=== PATIENT | female | born 1955 | race Caucasian/White ===

== ENCOUNTER → 2019-03-25 | Outpatient (CLI) | payer MEDICARE, BC ==
--- NOTE | 2019-03-25 14:00 | MM ---
Reason for exam: screening (asymptomatic). Last mammogram was performed 1 year and 9 months ago. Physical Findings: A clinical breast exam by your physician is recommended on an annual basis and results should be correlated with mammographic findings. MG 3D Screening Mammo W/Cad Bilateral CC and MLO view(s) were taken. Prior study comparison: June 14, 2017, mammogram. October 15, 2015, mammogram. There are scattered fibroglandular densities. No suspicious abnormality. No significant changes when compared with prior studies. ASSESSMENT: Negative, BI-RAD 1 RECOMMENDATION: Routine screening mammogram of both breasts in 1 year.
== END | disposition home or self-care (01) ==
LOC: RADMAMWWP 10:38
PROVIDERS: ATTEND Family Medicine
DX: Z12.31 Encounter for screening mammogram for malignant neoplasm of breast (principal)
CPT/HCPCS: 77063; 77067

== ENCOUNTER → 2020-03-11 | Outpatient (CLI) | payer MEDICARE, BC ==
--- NOTE | 2020-03-11 21:54 | MR ---
EXAMINATION TYPE: MR knee LT wo con DATE OF EXAM: 03/11/2020 COMPARISON: None. HISTORY: Left knee pain and swelling for 3 months. TECHNIQUE: Multiplanar, multisequence imaging of the left knee is performed without IV contrast. FINDINGS: MEDIAL MENISCUS: Medial extrusion of medial meniscus on coronal images. Anterior horn is intact witho ut tear. Posterior horn shows triangular shaped increased signal does not extend to articular surface LATERAL MENISCUS: Anterior and posterior horns are intact without tear. CRUCIATE LIGAMENTS: The anterior and posterior cruciate ligaments are intact and unremarkable. COLLATERAL LIGAMENTS: The medial collateral ligament and lateral collateral ligament complex are inta ct and unremarkable. EXTENSOR MECHANISM: Visualized quadriceps and patellar tendons are intact. EFFUSION: Moderate size suprapatellar joint effusion. POPLITEAL CYST: Small popliteal/bhtaia cyst. TRICOMPARTMENT SPACES: Moderate to severe joint space loss medial tibiofemoral compartment. More mild to moderate narrowing patellofemoral and lateral tibiofemoral compartments. Mild to moderate tricomp artment joint space spurring CARTILAGE: Significant cartilaginous loss medial tibiofemoral compartment. Chondromalacia patella wit h fissuring and cartilaginous loss along the superior aspect of the posterior patellar pole. BONE MARROW SIGNAL: Heterogeneous increased T2 signal throughout the distal medial femoral condyle. OTHER: No additional significant abnormality is appreciated. IMPRESSION: 1. 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 Significant abnormal bone marrow edema distal medial femoral condyle noted. 2. Intrasubstance tear posterior horn medial meniscus. 3. Moderate-sized suprapatellar joint effusion. 4. Small popliteal cyst.
== END | disposition home or self-care (01) ==
LOC: RADMRIMAIN 19:45
PROVIDERS: ATTEND Physician Assistant Medical
DX: S83.242A Other tear of medial meniscus, current injury, left knee, initial encounter (principal); M17.12 Unilateral primary osteoarthritis, left knee; M71.22 Synovial cyst of popliteal space [Baker], left knee

== ENCOUNTER → 2022-02-02 | Outpatient (CLI) | payer MEDICARE, BC ==
--- NOTE | 2022-02-03 09:01 | MM ---
Reason for Exam: Screening (asymptomatic). Last mammogram was performed 2 year(s) and 11 month(s) ago. Patient History: Menarche at age 9. First Full-Term at age 24. Postmenopausal. Risk Values: Tiffany 5 year model risk: 2.1%. NCI Lifetime model risk: 6.7%. Prior Study Comparison: 10/15/2015 Screening Mammogram, Unknown. 06/14/2017 Screening Mammogram, Unknown. 03/25/2019 Bilateral Screening Mammogram, [facility]. Tissue Density: There are scattered fibroglandular densities. Findings: Analyzed By CAD. There is no suspicious group of microcalcifications or new suspicious mass in either breast. Overall Assessment: Negative, BI-RAD 1 Management: Screening Mammogram of both breasts in 1 year. A clinical breast exam by your physician is recommended on an annual basis and results should be correlated with mammographic findings. Electronically signed and approved by: Raudel Spencer M.D. Radiologis
== END | disposition home or self-care (01) ==
LOC: RADMAMWWP 09:29
PROVIDERS: ATTEND Family Medicine
DX: Z12.31 Encounter for screening mammogram for malignant neoplasm of breast (principal); Z78.0 Asymptomatic menopausal state
CPT/HCPCS: 77063; 77067

== ENCOUNTER → 2023-09-20 | Outpatient (CLI) | payer MEDICARE, BC ==
--- NOTE | 2023-09-20 13:04 | CT ---
EXAMINATION TYPE: CT sinus wo con CT DLP: 480 mGycm, Automated exposure control for dose reduction was used. DATE OF EXAM: 09/20/2023 12:35 PM COMPARISON: . CLINICAL INDICATION:Female, 68 years old with history of J32.9 CHRONIC SINUSITIS; , TECHNIQUE: Multiple thin axial images were obtained through the paranasal sinuses without the use of IV contrast. Additional coronal and sagittal reformatted images were submitted for evaluation. Contrast used: none Oral contrast used: none FINDINGS: Frontal sinuses: Normally developed and aerated. Frontal Recess: Clear Maxillary Sinuses: Septal near the right ostiomeatal complex. Nearly occluded right ostiomeatal compl ex. Mucosal thickening throughout the right maxillary sinus. Patent left ostiomeatal complex. Left ma xillary sinus 2.4 cm retention cyst. Maxillary Infundibula([facility]): Clear, . Ethmoid sinuses: Normally developed and predominantly aerated. Sphenoid sinuses: Normally developed and aerated. Very small mucous retention cyst in the sphenoid si nus.. No dehiscence of carotid canal. No evidence of optic nerve dehiscence within the sphenoid sinu s. Sphenoethmoidal recesses: Clear. Nasal septum: Left convex deviation of the nasal septum. Nasal Turbinates: Within normal limits. Mastoid air cells & middle ears: The air cells are clear. The middle ears are grossly unremarkable. Modified Soft tissues & Brain: Partially seen without gross abnormality. Globes are intact. Other: Cribriform plate demonstrates symmetric cribriform plate. No evidence of bony dehiscence of skull ba se. Lamina papyracea is intact without evidence of remote orbital fracture or orbital prolapse into the e thmoid sinus. Pneumatization of the carmencita carlyle. IMPRESSION: 1. No significant mucosal sinus disease. 2. The ostiomeatal units, frontonasal and sphenoethmoidal recesses are clear.
--- NOTE | 2023-09-22 08:12 | MM ---
Reason for Exam: Screening (asymptomatic). Last mammogram was performed 1 year(s) and 7 month(s) ago. Patient History: Menarche at age 9. First Full-Term at age 24. Postmenopausal. Risk Values: Tiffany 5 year model risk: 2.1%. NCI Lifetime model risk: 6.1%. Prior Study Comparison: 06/14/2017 Screening Mammogram, Unknown. 03/25/2019 Bilateral Screening Mammogram, [facility]. 02/02/2022 Bilateral MG 3D screening mammo w/cad, [facility]. Tissue Density: There are scattered areas of fibroglandular density. Findings: Analyzed By CAD. Asymmetric density in the posterior central left breast. Spot compression view recommended. Stable benign-appearing calcifications. Stable asymmetric density in the outer margin left breast. Overall Assessment: Incomplete: need additional imaging evaluation, BI-RAD 0 Management: Diagnostic Mammogram of the left breast. . Patient should continue monthly self-breast exams. A clinical breast exam by your physician is recommended on an annual basis. This exam should not preclude additional follow-up of suspicious palpable abnormalities. Note on Tiffany scores and lifetime risk: 1. A Tiffany score greater than 3% is considered moderate risk. If this is the case, consider specialist referral to assess eligibility for a risk reducing agent. 2. If overall lifetime risk for the development of breast cancer is 20% or higher, the patient may qualify for future screening with alternating mammogram and breast MRI. Electronically signed and approved by: Benoit Humphries M.D. Radiologis
== END | disposition home or self-care (01) ==
LOC: RADMAMWWP 11:07
PROVIDERS: ATTEND Pediatrics
DX: Z12.31 Encounter for screening mammogram for malignant neoplasm of breast (principal); J32.9 Chronic sinusitis, unspecified; R92.322 Mammographic fibroglandular density, left breast; Z78.0 Asymptomatic menopausal state
CPT/HCPCS: 70486; 77063; 77067

== ENCOUNTER → 2023-09-27 | Outpatient (CLI) | payer MEDICARE, BC ==
--- NOTE | 2023-09-27 08:44 | MM ---
Reason for Exam: Additional evaluation requested from abnormal screening. Last screening mammogram was performed less than 1 month ago. Patient History: Menarche at age 9. First Full-Term at age 24. Postmenopausal. Patient has history of breast feeding. Risk Values: Tiffany 5 year model risk: 2.1%. NCI Lifetime model risk: 6.1%. Prior Study Comparison: 10/15/2015 Screening Mammogram, Unknown. 06/14/2017 Screening Mammogram, Unknown. 03/25/2019 Bilateral Screening Mammogram, [facility]. 02/02/2022 Bilateral MG 3D screening mammo w/cad, [facility]. 09/20/2023 Bilateral MG 3D screening mammo w/cad, [facility]. Tissue Density: Left: There are scattered areas of fibroglandular density. Findings: Analyzed By CAD. No persistent density, distortion or mass. Overall Assessment: Negative, BI-RAD 1 Management: Screening Mammogram of both breasts in 1 year. . Results were given to the patient verbally at the time of exam. Patient should continue monthly self-breast exams. A clinical breast exam by your physician is recommended on an annual basis. This exam should not preclude additional follow-up of suspicious palpable abnormalities. Note on Tiffany scores and lifetime risk: 1. A Tiffany score greater than 3% is considered moderate risk. If this is the case, consider specialist referral to assess eligibility for a risk reducing agent. 2. If overall lifetime risk for the development of breast cancer is 20% or higher, the patient may qualify for future screening with alternating mammogram and breast MRI. Electronically signed and approved by: Raudel Spencer M.D. Radiologis
== END | disposition home or self-care (01) ==
LOC: RADMAMWWP 08:19
PROVIDERS: ATTEND Pediatrics
DX: R92.8 Other abnormal and inconclusive findings on diagnostic imaging of breast (principal); R92.323 Mammographic fibroglandular density, bilateral breasts; Z78.0 Asymptomatic menopausal state
CPT/HCPCS: 77065; G0279; 77061